=== PATIENT | male | born 1965 | race Caucasian/White ===

== ENCOUNTER 2018-11-12 21:58 | Emergency (ER) | payer SELFPAY ==
[~2018-11-12] VITALS: Ht 177.8 cm; Wt 83.9 kg
[2018-11-12 21:59] VITALS: Ht 177.8 cm; Wt 83.9 kg
[2018-11-12 22:31] VITALS: BP 115/62
[2018-11-12 22:40] LABS: BASOPHIL % 0.2 % (0-2); CALCIUM 8.5 mg/dL (8.5-10.1); CARBON DIOXIDE 24.1 mmol/L (21-32); CHLORIDE SERUM 107 mmol/L (98-107); CREATININE SERUM 1.3 mg/dL (0.7-1.3); GFR1 > 60 mL/min; GLUCOSE SERUM 130 mg/dL (74-106); PLATELET COUNT 193 x10^3mcL (130-400); RED CELL DISTRIBUTION WIDTH 14.3 % (11.5-14.5); SODIUM SERUM 142 mmol/L (136-145)
[2018-11-12 22:50] LABS: ALBUMIN 3.5 g/dL (3.4-5.0); ALKALINE PHOSPHATASE 84 U/L (46-116); ALT/SGPT 40 U/L (16-63); AST/SGOT 26 U/L (15-37); BILIRUBIN TOTAL 0.49 mg/dL (0.20-1.00); TOTAL PROTEIN, SERUM 6.8 g/dL (6.4-8.2)
== END 2018-11-12 22:31 | disposition short-term general hospital (02) ==
LOC: ED 21:58
PROVIDERS: Emergency Medicine
DX: I21.3 ST elevation (STEMI) myocardial infarction of unspecified site (principal)
CPT/HCPCS: 83880; J1644; J7030; Q0092